=== PATIENT | male | born 1985 | race Caucasian/White ===

== ENCOUNTER 2025-05-13 18:05 | Emergency (ER) | payer BC ==
--- OUTSIDE RECORDS SUMMARY | 2025-05-13 18:09 | XMS REPORT | Continuity of Care Document ---
Author Name Unknown Address [address] [facility] [address] [place] [address] Organization [facility] [place] Address [address] [facility] 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 Name Role Phone CHERISE SILVER Primary Care Physician Unava ilable BERTA RAMIREZ Attending Clinician Unavailable BERTA RAMIREZ Attending Clinician Unavailable PEBBLES MONTERO Attending Clinician Unavailable ROBERTO MCCABE Attending Clinician Unavailable Doctor Unassigned, [place] Attending Clinician U Pebbles Castro MD Attending Clinician [phone] Berta Ramirez MD Attending Clinician [phone], [facility] Attending Clinician Unavailable CLAUDIA KIRAN Attending Clinician Unava ilable Berta Ramirez MD Admitting Clinician [phone] BERTA RAMIREZ Admitting Clinician Unavailable Payers Payer Name Policy Type Policy Number Effective Date Expirati on Date Source [facility] [id number] 2021 00:00:00 Problems Condition Name Condition Details Condition Category Status Onset Date Resolution Date Last Treatment Date Treating Clinician Comments Source Primary hypertensi on Primary hypertensi on Disease Active 5-16 00:00: 00 [facility] Longstandi ng persistent atrial fibrillati on Longstandi ng persistent atrial fibrillati on Disease Active 04-13 00:00: 00 [facility] Persistent atrial fibrillati on Persistent atrial fibrillati on Disease Active 03-22 00:00: 00 [facility] Morbid obesity Morbid obesity Disease Active 03-22 00:00: 00 [facility] TANIA (obstructi ve sleep apnea) TANIA (obstructi ve sleep apnea) Disease Active 03-22 00:00: 00 [facility] SWOLLEN LEG SWOLLEN LEG Active 03/20/2020 [facility] Diagnosis Active 03-20 12:40: 00 2020-03-20 13:52:00 [facility] 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 failure Active Problem 12/10/2020 [facility] Problem Active 2020-12-10 02:47:12 [facility] Mixed hyperlipid emia Mixed hyperlipid emia Active Problem 12/10/2020 [facility] Problem Active 2020-12-10 02:47:12 [facility] Aortic ectasia, unspecifie d site Aortic ectasia, unspecifie d site Active Problem 12/10/2020 [facility] Problem Active 2020-12-10 02:47:12 [facility] History of Past Illness Condition Name Condition Details Condition Category Status Onset Date Resolution Date Last Treatment Date Treating Clinician Comments Source Cellulitis , unspecifie d Cellulitis , unspecifie d 03/20/2020 03/22/2020 [facility] Problem 03-20 17:00: 00 2020-03-22 22:01:31 2020-03-22 22:01:31 [facility] Allergies, Adverse Reactions, Alerts Allergy Name Allergy Type Status Severity Reaction(s) Onset Date Inactive Date Treating Clinician Comments Source NO KNOWN ALLERGIE S Drug Class Active [facility] Social History Social Habit Start Date Stop Date Quantity Comments Source Sexual orientation U [facility] History of tobacco use Chews Tobacco [facility] Tobacco use and exposure 2024-04-13 00:00:00 2024-04-13 00:00:00 Former smokeless tobacco user [facility] History of Social function 2024-03-22 00:00:00 2024-03-22 00:00:00 [facility] Social History 2018-12-29 15:59:25 2018-12-29 15:59:25 [facility] Sex assigned at 1985 00:00:00 1985 00:00:00 [facility] Smoking Status Start Date Stop Date Source Tobacco smoking consumption unknown [facility] Never smoked tobacco [facility] Medications Ordered Medication Name Filled Medication Name Start Date Stop Date Current Medication? Ordering Clinician Indication Dosage Frequency Signature (SIG) Comments Components Source metoprolol succinate XL 100 mg 24 hr tablet 12-23 00:00: 00 12-24 04:59 :00 No [id number] 100mg Take 1 tablet by mouth in the morning. [facility] apixaban (ELIQUIS) tablet 5 mg apixaban (ELIQUIS) tablet 5 mg 12-20 19:30: 00 12-20 19:49 :00 No [id number] 5mg 5 mg, Oral, Once, 1 dose, On Thu12/20/24 at 1430, Routine, Indication s: Non-Valvul ar Atrial Fibrillati on [facility] NaCl 0.9% (NS) IV infusion 1,000 mL 12-20 15:15: 00 12-21 00:57 :24 No 1000mL at 75 mL/hr, IV Infusion, CONTINUOUS , Starting on Thu12/20/24 at 1015, Until Thu12/20/24 at 1957, Routine, PACU [facility] amiodarone 200 mg tablet 12-20 00:00: 00 Yes [id number] 200mg Take 1 tablet by mouth in the morning. [facility] apixaban 5 mg tablet 12-20 00:00: 00 12-20 00:00 :00 No [id number] 5mg Take 1 tablet by mouth in the morning and 1 tablet in the evening. Indication s: atrial fibrillati on [facility] perflutren protein-A microsphr (OPTISON) injection 3 mL 829 21:15: 00 04-07 21:03 :00 No [id number] 3mL 3 mL, IV Push, ONCE, 1 dose, On Alessandra 04/07/24 at 1615, Routine [facility] metoprolol succinate XL 50 mg 24 hr tablet 03-22 16:06: 40 12-23 00:00 :00 No 100mg Take 2 tablets by mouth in the morning. [facility] aspirin 81 mg EC tablet 03-22 00:00: 00 03-23 04:59 :00 No [id number] 81mg Take 1 tablet by mouth in the morning. [facility] Cephalexin 500 MG Oral Capsule [Keflex] 03-20 18:37: 00 Yes 500 mg = 1 cap, PO, QID, X 10 day, # 40 cap, 0 Refill(s), 175.26, cm, 03/20/20 12:47:00 CDT, Height, 121.1, kg, 03/20/20 12:47:00 CDT, Weight [facility] lisinopril 10 mg oral tablet 12-29 14:18: 00 Yes 10 mg = 1 tab, PO, Daily, # 90 tab, 1 Refill(s), Pharmacy: [id number] [facility] Desoximetas one 2.5 MG/ML Topical Cream [Topicort] 12-29 14:18: 00 Yes 1 appl, TOP, BID, X 14 day, # 60 gm, 0 Refill(s), Pharmacy: [facility] #[id number] [facility] Vital Signs Vital Name Observation Time Observation Value Comments S ourcindy Systolic blood pressure 2025-01-04 14:41:00 140 mm[Hg] [facility] Diastolic blood pressure 2025-01-04 14:41:00 100 mm[Hg] [facility] Heart rate 2025-01-04 14:41:00 72 /min [facility] Oxygen saturation in Arterial blood by Pulse oximetry 2025-01-04 14:41:00 98 /min [facility] Respiratory rate 2025-01-04 14:40:00 20 /min [facility] Body height 2025-01-04 14:40:00 172.7 cm [facility] Body weight 2025-01-04 14:40:00 132.45 kg [facility] BMI 2025-01-04 14:40:00 44.40 kg/m2 [facility] Systolic blood pressure 2024-12-23 13:13:00 146 mm[Hg] [facility] Diastolic blood pressure 2024-12-23 13:13:00 98 mm[Hg] [facility] Heart rate 2024-12-23 13:13:00 86 /min [facility] Respiratory rate 2024-12-23 13:10:00 17 /min [facility] Body height 2024-12-23 13:10:00 172.7 cm [facility] Body weight 2024-12-23 13:10:00 132.586 kg [facility] BMI 2024-12-23 13:10:00 44.44 kg/m2 [facility] Oxygen saturation in Arterial blood by Pulse oximetry 2024-12-23 13:10:00 97 /min [facility] Body height 2024-12-09 21:39:00 172.7 cm [facility] Body weight 2024-12-09 21:39:00 131.1 kg [facility] BMI 2024-12-09 21:39:00 43.95 kg/m2 [facility] Systolic blood pressure 2024-12-20 19:45:00 131 mm[Hg] BP WHILE STANDING [facility] Diastolic blood pressure 2024-12-20 19:45:00 94 mm[Hg] BP WHILE STANDING [facility] Heart rate 2024-12-20 19:41:00 103 /min [facility] Respiratory rate 2024-12-20 19:41:00 12 /min [facility] Oxygen saturation in Arterial blood by Pulse oximetry 2024-12-20 19:41:00 91 /min [facility] Body temperature 2024-12-20 11:20:00 36.22 Cecily [facility] Body height 2024-12-20 11:20:00 172.7 cm [facility] Body weight 2024-12-20 11:20:00 129.275 kg [facility] BMI 2024-12-20 11:20:00 43.33 kg/m2 [facility] Systolic blood pressure 2024-12-20 15:30:00 116 mm[Hg] [facility] Diastolic blood pressure 2024-12-20 15:30:00 82 mm[Hg] [facility] Heart rate 2024-12-20 15:30:00 92 /min [facility] Respiratory rate 2024-12-20 15:30:00 9 /min [facility] Oxygen saturation in Arterial blood by Pulse oximetry 2024-12-20 15:30:00 93 /min [facility] Body temperature 2024-12-20 11:20:00 36.22 Cecily [facility] Body height 2024-12-20 11:20:00 172.7 cm [facility] Body weight 2024-12-20 11:20:00 129.275 kg [facility] BMI 2024-12-20 11:20:00 43.33 kg/m2 [facility] Systolic blood pressure 2024-06-24 21:11:00 132 mm[Hg] [facility] Diastolic blood pressure 2024-06-24 21:11:00 87 mm[Hg] [facility] Heart rate 2024-06-24 21:11:00 80 /min [facility] Body temperature 2024-06-24 21:11:00 36.17 Cecily [facility] Respiratory rate 2024-06-24 21:11:00 16 /min [facility] Body height 2024-06-24 21:11:00 172.7 cm [facility] Body weight 2024-06-24 21:11:00 131.135 kg [facility] BMI 2024-06-24 21:11:00 43.96 kg/m2 [facility] Oxygen saturation in Arterial blood by Pulse oximetry 2024-06-24 21:11:00 95 /min [facility] Systolic blood pressure 2024-04-13 18:57:00 125 mm[Hg] [facility] Diastolic blood pressure 2024-04-13 18:57:00 85 mm[Hg] [facility] Heart rate 2024-04-13 18:54:00 68 /min [facility] Respiratory rate 2024-04-13 18:54:00 18 /min [facility] Body height 2024-04-13 18:54:00 175.3 cm [facility] Body weight 2024-04-13 18:54:00 136.351 kg [facility] BMI 2024-04-13 18:54:00 44.39 kg/m2 [facility] Oxygen saturation in Arterial blood by Pulse oximetry 2024-04-13 18:54:00 98 /min [facility] Systolic blood pressure 2024-03-22 20:23:00 131 mm[Hg] [facility] Diastolic blood pressure 2024-03-22 20:23:00 88 mm[Hg] [facility] Heart rate 2024-03-22 20:23:00 73 /min [facility] Respiratory rate 2024-03-22 20:23:00 16 /min [facility] Oxygen saturation in Arterial blood by Pulse oximetry 2024-03-22 20:23:00 98 /min [facility] Body height 2024-03-22 20:14:00 172.7 cm [facility] Body weight 2024-03-22 20:14:00 136.215 kg [facility] BMI 2024-03-22 20:14:00 45.66 kg/m2 [facility] Temperature Oral (F) 2020-03-20 18:55:00 98.6 F [facility] Heart Rate 2020-03-20 18:55:00 [facility] Respitory Rate 2020-03-20 18:55:00 [facility] Systolic (mm Hg) 2020-03-20 18:55:00 [facility] Diastolic (mm Hg) 2020-03-20 18:55:00 [facility] Height 2020-03-20 17:47:00 175.26 cm [facility] BMI Calculated 2020-03-20 17:47:00 [facility] Weight 2020-03-20 17:47:00 [facility] Systolic (mm Hg) 2020-03-20 17:47:00 [facility] Diastolic (mm Hg) 2020-03-20 17:47:00 [facility] Heart Rate 2020-03-20 17:47:00 [facility] Respitory Rate 2020-03-20 17:47:00 [facility] Temperature Oral (F) 2020-03-20 17:47:00 98.6 F [facility] Height 2018-12-29 13:08:00 175.26 cm [facility] Weight 2018-12-29 13:08:00 [facility] BMI Calculated 2018-12-29 13:08:00 [facility] Temperature Oral (F) 2018-12-29 13:08:00 98.1 F [facility] Systolic (mm Hg) 2018-12-29 13:08:00 [facility] Diastolic (mm Hg) 2018-12-29 13:08:00 [facility] Heart Rate 2018-12-29 13:08:00 [facility] Procedures Procedure Date / Time Performed Performing Clinician Source TRANSTHORACIC ECHO (TTE) LIMITED 2024-12-20 17:27:[address] [facility] TRANSTHORACIC ECHO (TTE) LIMITED 2024-12-20 17:27:[address] [facility] CATH PROCEDURE LOG 2024-12-20 14:39:43 Doctor Un assigned, [place] [facility] CATH PROCEDURE LOG 2024-12-20 14:39:43 Doctor Un assigned, [place] [facility] POCT ACT LOW RANGE 2024-12-20 14:17:00 Dano Ku [facility] CARDIAC CATHETERIZATION 2024-12-20 14:07:15 Dano Ku [facility] ELECTROPHYSIOLOGY PROCEDURE 2024-12-20 14:07:15 Dano Romeo i [facility] ELECTROPHYSIOLOGY PROCEDURE 2024-12-20 14:07:15 Dano Romeo i, [facility] ELECTROPHYSIOLOGY PROCEDURE 2024-12-20 14:07:15 Dano Romeo i [facility] ELECTROPHYSIOLOGY PROCEDURE 2024-12-20 14:07:15 Dano Romeo i, [facility] CARDIAC CATHETERIZATION 2024-12-20 14:07:15 Dano Ku [facility] ELECTROPHYSIOLOGY PROCEDURE 2024-12-20 14:07:15 Dano Romeo i [facility] ELECTROPHYSIOLOGY PROCEDURE 2024-12-20 14:07:15 Dano Romeo i [facility] ELECTROPHYSIOLOGY PROCEDURE 2024-12-20 14:07:15 Dano Romeo i [facility] ELECTROPHYSIOLOGY PROCEDURE 2024-12-20 14:07:15 Dano Romeo i [facility] POCT ACT LOW RANGE 2024-12-20 14:04:00 Dano Ku [facility] POCT ACT LOW RANGE 2024-12-20 13:40:00 Dano Ku [facility] POCT ACT LOW RANGE 2024-12-20 13:20:00 Dano Ku Berta [facility] HB ABO GROUPING 2024-12-20 12:16:00 Dax Dunbar [facility] HB ABO GROUPING 2024-12-20 12:16:00 Dax Dunbar [facility] TRANSTHORACIC ECHO (TTE) COMPLETE W/ CONTRAST 2024-04-07 21:00:18 Pebbles Montero [facility] Collection of venous blood by venipuncture 2018-12-29 14:49:00 [facility] Encounters Start Date/Time End Date/Time Encounter Type Admission Type Attending [facility] Care Department Encounter ID Source 2025-07-12 08:30:00 2025-07-12 08:30:00 Outpatient R BERTA RAMIREZ [facility] [id number] [facility] 2025-06-23 08:00:00 2025-06-23 08:00:00 Outpatient R PEBBLES MONTERO [facility] [id number] [facility] 2024-12-01 00:00:00 2025-01-07 18:26:41 Patient Secure Msg Doctor Unassigned, [place] Doctor Unassigned, [place] [facility] 1..840.114 350.1.13.10 4.2.7.2.686 [id number] [facility] 2025-01-04 14:30:00 2025-01-04 09:58:10 Office Visit R BERTA RAMIREZ [facility] [id number] 350.1.13.10 4.2.7.2.686 [id number] [facility] 2024-12-23 08:00:00 2024-12-23 08:42:00 Office Visit Pebbles Saucedo [facility] 1.2840.114 350.1.13.10 4.2.7.2.686 [id number] [facility] 2024-12-23 08:00:00 2024-12-23 08:00:00 Outpatient PEBBLES SAUCEDO [facility] [id number] [facility] 2024-12-20 07:16:12 2024-12-20 23:59:00 Hospital Encounter Dano Ku Berta [facility] 1.2840.114 350.1.13.10 4.2.7.2.686 [id number] [facility] 2024-12-20 06:19:00 2024-12-20 15:04:00 Hospital Encounter Jyotsna DANO KUSONABERTAHALE BERTA [facility] [id number] [facility] 2024-12-20 06:19:00 2024-12-20 15:04:00 Outpatient R DANO TATIANASONABERTABERTA HALE [facility] [id number] [facility] 2024-12-20 07:30:00 2024-12-20 10:30:00 Surgery Berta Ramirez [facility] 1.2840.114 350.1.13.10 4.2.7.2.686 [id number] [facility] 2024-12-19 16:00:00 2024-12-19 16:15:00 Director Life Sciences Visit 2, [facility] Berta Ramirez 2, Adc Lab [facility] 1.2840.114 350.1.13.10 4.2.7.2.686 [id number] [facility] 2024-12-19 16:00:00 2024-12-19 16:00:00 Outpatient R BERTA RAMIREZ [facility] [id number] [facility] 2024-12-19 00:00:00 2024-12-19 14:26:34 Telephone Berta Ramirez [facility] 1.2840.114 350.1.13.10 4.2.7.2.686 [id number] [facility] 2024-07-13 08:00:00 2024-07-13 08:00:00 Outpatient R BERTA RAMIREZ [facility] [id number] [facility] 2024-06-24 15:30:00 2024-06-24 15:35:18 Outpatient R KYLAH [facility] [id number] [facility] 2024-06-24 15:30:00 2024-06-24 15:35:18 Office Visit Pebbles Montero [facility] 1.2840.114 350.1.13.10 4.2.7.2.686 [id number] [facility] 2024-04-15 00:00:00 2024-04-15 12:47:38 Telephone Berta Ramirez [facility] 1.2840.114 350.1.13.10 4.2.7.2.686 [id number] [facility] 2024-04-13 15:30:00 2024-04-13 15:30:00 Outpatient R BERTA RAMIREZ [facility] [id number] [facility] 2024-04-13 14:00:00 2024-04-13 14:31:23 Outpatient R BERTA RAMIREZ [facility] [id number] [facility] 2024-04-13 14:00:00 2024-04-13 14:31:23 Office Visit Berta Ramirez [facility] [id number] 350.1.13.10 4.2.7.2.686 [id number] [facility] 2024-04-07 14:44:16 2024-04-07 23:59:00 [facility] [id number] [facility] 2024-04-07 14:44:16 2024-04-07 23:59:00 Hospital Encounter Kylah [facility] 1.2.840.114 350.1.13.10 4.2.7.2.686 [id number] [facility] 2024-03-25 00:00:00 2024-03-25 09:02:30 Telephone Kylah [facility] 1.2.840.114 350.1.13.10 4.2.7.2.686 [id number] [facility] 2024-03-22 15:30:00 2024-03-22 16:21:37 Outpatient R PEBBLES MONTERO [facility] [id number] [facility] 2024-03-22 15:30:00 2024-03-22 16:21:37 Office Visit Kylah [facility] 1.2.840.114 350.1.13.10 4.2.7.2.686 [id number] [facility] 2020-03-20 12:40:00 2020-03-20 14:04:00 Emergency E CLAUDIA KIRAN BL BL 7502 BL Results Test Description Test Time Test Comments Results Result Comments Source Cardiovascular Catheterization 15:10:02 Table formatting from the original result was not included.Images from the original result were not included. Procedure: Atrial fibrillation ablation ?[place] Supervisor : Berta Ramirez MD EBL: 30 ml (unless otherwise stated)Specimens: noneAnesthesia: General anesthesiaComplicati on: None Pre-Procedure Diagnosis:Symptomati c long standing persistent atrial fibrillation Summarized Procedure:1-PVI for afib ablation Details:The risks and benefits of GA, electrophysiology study, trans-septal puncture, endocardial PFA+/- radiofrequency ablation, possible direct current cardioversion, atrial fibrillation ablation, and atrial flutter ablation were explained to the patient in detail. Risks including, but not limited to bleeding, infection, heart block, atrio-esophageal fistula, pulmonary vein stenosis, stroke, cardiac tamponade, pneumothorax, , and need for cardiac surgery were explained. The patient expressed verbal understanding and agreed to proceed with the procedure as outlined. Informed written consent was signed and placed in the chart prior to proceeding. After informed consent was obtained, the patient was brought to the Cardiac Electrophysiology Laboratory in a fasting state and was prepped and draped in the usual sterile fashion. Both groin areas were infiltrated with 0.5% lidocaine. Presenting rhythm was afib RVR. Prior to the procedure ICE ?was performed and demonstrated normal LVEF, normal size LA ?and no left atrial thrombus. (ICE exam was performed from ?RA, RVOT and LA. Using modified Seldinger technique, sheaths and catheters were inserted and advanced as follows. An 18,10,7 on right femoral ?vein. An Inquiry CS catheter was inserted via the 7 Fr sheath and placed with its tip in the distal coronary sinus. ?Next, an intracardiac echocardiogram probe was inserted into the 9 Fr sheath, and Faraconnect sheath inserted via 18 Fr sheath in the right femoral vein. Intracardiac echocardiography (ICE): An 8Fr ICE catheter was inserted through the right femoral vein sheath and under fluoroscopic direction was placed into the right atrium. ICE was used to assist with transseptal puncture . Furthermore it was left in place during the entire procedure for monitoring of possible development of pericardial effusion or tamponade which there was none. Pre TS puncture I did detailed ICE exam, initially I examine the area of the right atrium, tricuspid valve and right ventricle inflow. With gradual posterior rotation I examined the following Cardiac structures ; interatrial septum, left atrium, mitral valve annulus, mitral valve leaflet, MAXX, left superior PV, left inferior PV, posterior wall of the left atrium, right pulmonary veins. I re-centered the ICE catheter facing the RV inflow and with anterior flexion of the ICE catheter and septal rotation I gently advanced the ICE cathter into the right ventricle. With gradual septal-Posterior rotation of the ICE catheter I examined the left ventricular cavity, posterior medical papillary muscle, anterior lateral papillary muscle. With more clockwise rotation of the ICE catheter I was able to examine AV leaflet in cross sectional view along with RVOT, pulmonary valve and PA. From that view, I reexamined the MAXX lobes and left superior PV. At end of exam the ICE cathter was kept inside the RV for monitoring of possible development of pericardial effusion. ? Transseptal puncture: YoQueVosnect 13Fr sheath was advanced via 18 Fr sheath in right femoral vein. After placing and confirming the ?position of [place] sheath tip on the interatrial septum fossa ovalis area with ICE and fluorsoscopy guidance, the TS puncture was performed, guidewire was advanced into LA then PV with ICE guidance. ?Sheath and dilator were inserted into mid LA cavity under fluoroscopic direction. ?34640 units of ?heparin was administered intravenously at time of obtaining TS puncture prior to advancing the sheath and dilator. ACT was measured every 10 minutes and additional doses of heparin were administered in order to maintain ACT between 350-400 seconds. The [place] dilator and guide wire were removed and sheath was flushed and maintained on continuous drip with heparinized saline. Left atrial mapping and ablation: A-PVI:A 3-D electroanatomic map of the left atrium was performed using the Rhythmia mapping system. Mapping was performed with PFA mapping catheter. Pulmonary veins were identified using fluoroscopy, ICE, and the mapping system. The patient had a total of 4 veins. A right superior, right inferior, left superior, and left inferior pulmonary vein. Next we delivered Farawave PFA therapy to isolate pulmonary veins with 8 applications per vein with 2 Kv (4-6 per position). PV isolation confirmed with re mapping the PVs using PFA ?catheter. Plan Limited TTE for effusion.Bedrest 5 hr. Start Eliquis, 5 bid, first dose in 5 hrSuture removal in 5 hr.Follow up with EP clinic in 2 weeks Start amiodarone 200 mg daily for 90 days. Patient voiced understanding her/his treatment plan. All her/his questions were answered during this visit. Advised to call the office with any further questions. Voice recognition software has been used to create portions of this document. An attempt to proofread has been made to minimize errors. Please do not hesitate to call with any questions. ? ? Berta Ramirez, MDCardiac Electrophysiology [facility] ? Procedure DetailsProcedure: Atrial fibrillation ablation [facility] Supervisor: Berta Ramirez MD EBL: 30 ml (unless otherwise stated)Specimens: noneAnesthesia: General anesthesiaComplicati on: None Pre-Procedure Diagnosis:Symptomati c long standing persistent atrial fibrillation Summarized Procedure:1-PVI for afib ablation Details:The risks and benefits of GA, electrophysiology study, trans-septal puncture, endocardial PFA+/- radiofrequency ablation, possible direct current cardioversion, atrial fibrillation ablation, and atrial flutter ablation were explained to the patient in detail. Risks including, but not limited to bleeding, infection, heart block, atrio-esophageal fistula, pulmonary vein stenosis, stroke, cardiac tamponade, pneumothorax, , and need for cardiac surgery were explained. The patient expressed verbal understanding and agreed to proceed with the procedure as outlined. Informed written consent was signed and placed in the chart prior to proceeding. After informed consent was obtained, the patient was brought to the Cardiac Electrophysiology Laboratory in a fasting state and was prepped and draped in the usual sterile fashion. Both groin areas were infiltrated with 0.5% lidocaine. Presenting rhythm was afib RVR. Prior to the procedure ICE was performed and demonstrated normal LVEF, normal size LA and no left atrial thrombus. (ICE exam was performed from RA, RVOT and LA. Using modified Seldinger technique, sheaths and catheters were inserted and advanced as follows. An 18,10,7 on right femoral vein. An Inquiry CS catheter was inserted via the 7 Fr sheath and placed with its tip in the distal coronary sinus. Next, an intracardiac echocardiogram probe was inserted into the 9 Fr sheath, and Faraconnect sheath inserted via 18 Fr sheath in the right femoral vein. Intracardiac echocardiography (ICE): An 8Fr ICE catheter was inserted through the right femoral vein sheath and under fluoroscopic direction was placed into the right atrium. ICE was used to assist with transseptal puncture . Furthermore it was left in place during the entire procedure for monitoring of possible development of pericardial effusion or tamponade which there was none. Pre TS puncture I did detailed ICE exam, initially I examine the area of the right atrium, tricuspid valve and right ventricle inflow. With gradual posterior rotation I examined the following Cardiac structures ; interatrial septum, left atrium, mitral valve annulus, mitral valve leaflet, MAXX, left superior PV, left inferior PV, posterior wall of the left atrium, right pulmonary veins. I re-centered the ICE catheter facing the RV inflow and with anterior flexion of the ICE catheter and septal rotation I gently advanced the ICE cathter into the right ventricle. With gradual septal-Posterior rotation of the ICE catheter I examined the left ventricular cavity, posterior medical papillary muscle, anterior lateral papillary muscle. With more clockwise rotation of the ICE catheter I was able to examine AV leaflet in cross sectional view along with RVOT, pulmonary valve and PA. From that view, I reexamined the MAXX lobes and left superior PV. At end of exam the ICE cathter was kept inside the RV for monitoring of possible development of pericardial effusion. Transseptal puncture: FarMytonomynect 13Fr sheath was advanced via 18 Fr sheath in right femoral vein. After placing and confirming the position of [place] sheath tip on the interatrial septum fossa ovalis area with ICE and fluorsoscopy guidance, the TS puncture was performed, guidewire was advanced into LA then PV with ICE guidance. Sheath and dilator were inserted into mid LA cavity under fluoroscopic direction. 73727 units of heparin was administered intravenously at time of obtaining TS puncture prior to advancing the sheath and dilator. ACT was measured every 10 minutes and additional doses of heparin were administered in order to maintain ACT between 350-400 seconds. The [place] dilator and guide wire were removed and sheath was flushed and maintained on continuous drip with heparinized saline. Left atrial mapping and ablation: A-PVI:A 3-D electroanatomic map of the left atrium was performed using the Rhythmia mapping system. Mapping was performed with PFA mapping catheter. Pulmonary veins were identified using fluoroscopy, ICE, and the mapping system. The patient had a total of 4 veins. A right superior, right inferior, left superior, and left inferior pulmonary vein. Next we delivered Farawave PFA therapy to isolate pulmonary veins with 8 applications per vein with 2 Kv (4-6 per position). PV isolation confirmed with re mapping the PVs using PFA catheter. Plan Limited TTE for effusion.Bedrest 5 hr. Start Eliquis, 5 bid, first dose in 5 hrSuture removal in 5 hr.Follow up with EP clinic in 2 weeks Start amiodarone 200 mg daily for 90 days. Patient voiced understanding her/his treatment plan. All her/his questions were answered during this visit. Advised to call the office with any further questions. Voice recognition software has been used to create portions of this document. An attempt to proofread has been made to minimize errors. Please do not hesitate to call with any questions. Berta Ramirez, MDCardiac Electrophysiology [facility] Electrophysiology procedure 15:10:01 Table formatting from the original result was not included.Images from the original result were not included. Procedure: Atrial fibrillation ablation ?[facility] Supervisor : Berta Ramirez MD EBL: 30 ml (unless otherwise stated)Specimens: noneAnesthesia: General anesthesiaComplicati on: None Pre-Procedure Diagnosis:Symptomati c long standing persistent atrial fibrillation Summarized Procedure:1-PVI for afib ablation Details:The risks and benefits of GA, electrophysiology study, trans-septal puncture, endocardial PFA+/- radiofrequency ablation, possible direct current cardioversion, atrial fibrillation ablation, and atrial flutter ablation were explained to the patient in detail. Risks including, but not limited to bleeding, infection, heart block, atrio-esophageal fistula, pulmonary vein stenosis, stroke, cardiac tamponade, pneumothorax, , and need for cardiac surgery were explained. The patient expressed verbal understanding and agreed to proceed with the procedure as outlined. Informed written consent was signed and placed in the chart prior to proceeding. After informed consent was obtained, the patient was brought to the Cardiac Electrophysiology Laboratory in a fasting state and was prepped and draped in the usual sterile fashion. Both groin areas were infiltrated with 0.5% lidocaine. Presenting rhythm was afib RVR. Prior to the procedure ICE ?was performed and demonstrated normal LVEF, normal size LA ?and no left atrial thrombus. (ICE exam was performed from ?RA, RVOT and LA. Using modified Seldinger technique, sheaths and catheters were inserted and advanced as follows. An 18,10,7 on right femoral ?vein. An Inquiry CS catheter was inserted via the 7 Fr sheath and placed with its tip in the distal coronary sinus. ?Next, an intracardiac echocardiogram probe was inserted into the 9 Fr sheath, and Faraconnect sheath inserted via 18 Fr sheath in the right femoral vein. Intracardiac echocardiography (ICE): An 8Fr ICE catheter was inserted through the right femoral vein sheath and under fluoroscopic direction was placed into the right atrium. ICE was used to assist with transseptal puncture . Furthermore it was left in place during the entire procedure for monitoring of possible development of pericardial effusion or tamponade which there was none. Pre TS puncture I did detailed ICE exam, initially I examine the area of the right atrium, tricuspid valve and right ventricle inflow. With gradual posterior rotation I examined the following Cardiac structures ; interatrial septum, left atrium, mitral valve annulus, mitral valve leaflet, MAXX, left superior PV, left inferior PV, posterior wall of the left atrium, right pulmonary veins. I re-centered the ICE catheter facing the RV inflow and with anterior flexion of the ICE catheter and septal rotation I gently advanced the ICE cathter into the right ventricle. With gradual septal-Posterior rotation of the ICE catheter I examined the left ventricular cavity, posterior medical papillary muscle, anterior lateral papillary muscle. With more clockwise rotation of the ICE catheter I was able to examine AV leaflet in cross sectional view along with RVOT, pulmonary valve and PA. From that view, I reexamined the MAXX lobes and left superior PV. At end of exam the ICE cathter was kept inside the RV for monitoring of possible development of pericardial effusion. ? Transseptal puncture: Faraconnect 13Fr sheath was advanced via 18 Fr sheath in right femoral vein. After placing and confirming the ?position of [place] sheath tip on the interatrial septum fossa ovalis area with ICE and fluorsoscopy guidance, the TS puncture was performed, guidewire was advanced into LA then PV with ICE guidance. ?Sheath and dilator were inserted into mid LA cavity under fluoroscopic direction. ?53988 units of ?heparin was administered intravenously at time of obtaining TS puncture prior to advancing the sheath and dilator. ACT was measured every 10 minutes and additional doses of heparin were administered in order to maintain ACT between 350-400 seconds. The [place] dilator and guide wire were removed and sheath was flushed and maintained on continuous drip with heparinized saline. Left atrial mapping and ablation: A-PVI:A 3-D electroanatomic map of the left atrium was performed using the Qgiv mapping system. Mapping was performed with PFA mapping catheter. Pulmonary veins were identified using fluoroscopy, ICE, and the mapping system. The patient had a total of 4 veins. A right superior, right inferior, left superior, and left inferior pulmonary vein. Next we delivered Farawave PFA therapy to isolate pulmonary veins with 8 applications per vein with 2 Kv (4-6 per position). PV isolation confirmed with re mapping the PVs using PFA ?catheter. Plan Limited TTE for effusion.Bedrest 5 hr. Start Eliquis, 5 bid, first dose in 5 hrSuture removal in 5 hr.Follow up with EP clinic in 2 weeks Start amiodarone 200 mg daily for 90 days. Patient voiced understanding her/his treatment plan. All her/his questions were answered during this visit. Advised to call the office with any further questions. Voice recognition software has been used to create portions of this document. An attempt to proofread has been made to minimize errors. Please do not hesitate to call with any questions. ? ? ISAAK Levyardiac Electrophysiology [facility] ? Procedure DetailsProcedure: Atrial fibrillation ablation [facility] Supervisor: Berta Ramirez MD EBL: 30 ml (unless otherwise stated)Specimens: noneAnesthesia: General anesthesiaComplicati on: None Pre-Procedure Diagnosis:Symptomati c long standing persistent atrial fibrillation Summarized Procedure:1-PVI for afib ablation Details:The risks and benefits of GA, electrophysiology study, trans-septal puncture, endocardial PFA+/- radiofrequency ablation, possible direct current cardioversion, atrial fibrillation ablation, and atrial flutter ablation were explained to the patient in detail. Risks including, but not limited to bleeding, infection, heart block, atrio-esophageal fistula, pulmonary vein stenosis, stroke, cardiac tamponade, pneumothorax, , and need for cardiac surgery were explained. The patient expressed verbal understanding and agreed to proceed with the procedure as outlined. Informed written consent was signed and placed in the chart prior to proceeding. After informed consent was obtained, the patient was brought to the Cardiac Electrophysiology Laboratory in a fasting state and was prepped and draped in the usual sterile fashion. Both groin areas were infiltrated with 0.5% lidocaine. Presenting rhythm was afib RVR. Prior to the procedure ICE was performed and demonstrated normal LVEF, normal size LA and no left atrial thrombus. (ICE exam was performed from RA, RVOT and LA. Using modified Seldinger technique, sheaths and catheters were inserted and advanced as follows. An 18,10,7 on right femoral vein. An Inquiry CS catheter was inserted via the 7 Fr sheath and placed with its tip in the distal coronary sinus. Next, an intracardiac echocardiogram probe was inserted into the 9 Fr sheath, and Faraconnect sheath inserted via 18 Fr sheath in the right femoral vein. Intracardiac echocardiography (ICE): An 8Fr ICE catheter was inserted through the right femoral vein sheath and under fluoroscopic direction was placed into the right atrium. ICE was used to assist with transseptal puncture . Furthermore it was left in place during the entire procedure for monitoring of possible development of pericardial effusion or tamponade which there was none. Pre TS puncture I did detailed ICE exam, initially I examine the area of the right atrium, tricuspid valve and right ventricle inflow. With gradual posterior rotation I examined the following Cardiac structures ; interatrial septum, left atrium, mitral valve annulus, mitral valve leaflet, MAXX, left superior PV, left inferior PV, posterior wall of the left atrium, right pulmonary veins. I re-centered the ICE catheter facing the RV inflow and with anterior flexion of the ICE catheter and septal rotation I gently advanced the ICE cathter into the right ventricle. With gradual septal-Posterior rotation of the ICE catheter I examined the left ventricular cavity, posterior medical papillary muscle, anterior lateral papillary muscle. With more clockwise rotation of the ICE catheter I was able to examine AV leaflet in cross sectional view along with RVOT, pulmonary valve and PA. From that view, I reexamined the MAXX lobes and left superior PV. At end of exam the ICE cathter was kept inside the RV for monitoring of possible development of pericardial effusion. Transseptal puncture: Faraconnect 13Fr sheath was advanced via 18 Fr sheath in right femoral vein. After placing and confirming the position of [place] sheath tip on the interatrial septum fossa ovalis area with ICE and fluorsoscopy guidance, the TS puncture was performed, guidewire was advanced into LA then PV with ICE guidance. Sheath and dilator were inserted into mid LA cavity under fluoroscopic direction. 18354 units of heparin was administered intravenously at time of obtaining TS puncture prior to advancing the sheath and dilator. ACT was measured every 10 minutes and additional doses of heparin were administered in order to maintain ACT between 350-400 seconds. The [place] dilator and guide wire were removed and sheath was flushed and maintained on continuous drip with heparinized saline. Left atrial mapping and ablation: A-PVI:A 3-D electroanatomic map of the left atrium was performed using the Rhythmia mapping system. Mapping was performed with PFA mapping catheter. Pulmonary veins were identified using fluoroscopy, ICE, and the mapping system. The patient had a total of 4 veins. A right superior, right inferior, left superior, and left inferior pulmonary vein. Next we delivered Farawave PFA therapy to isolate pulmonary veins with 8 applications per vein with 2 Kv (4-6 per position). PV isolation confirmed with re mapping the PVs using PFA catheter. Plan Limited TTE for effusion.Bedrest 5 hr. Start Eliquis, 5 bid, first dose in 5 hrSuture removal in 5 hr.Follow up with EP clinic in 2 weeks Start amiodarone 200 mg daily for 90 days. Patient voiced understanding her/his treatment plan. All her/his questions were answered during this visit. Advised to call the office with any further questions. Voice recognition software has been used to create portions of this document. An attempt to proofread has been made to minimize errors. Please do not hesitate to call with any questions. Berta Ramirez, MDCardiac Electrophysiology [facility] ACT Low [id number] 11:59:16* Test Item Value Reference Range Interpretation Comme nts ACTLR (test code = 4465757059) 355 89-169 H Lab Interpretation (test cod e = 96005-8) [facility] ACT Low [id number] 11:59:16* Test Item Value Reference Range Interpretation Comme nts ACTLR (test code = 4453189178) 318 89-169 H Lab Interpretation (test cod e = 20452-9) [facility]normal [facility] ACT Low [id number] 11:59:16* Test Item Value Reference Range Interpretation Comme nts ACTLR (test code = 9129682185) 158 89-169 Lab Interpretation (test cod e = 98915-5) Normal [facility] [id number] 18:37:36* Test Item Value Reference Range Interpretation Comme nts Height (test code = 4367315961) 68 in Weight (test code = 7787155032) 285 lbs Systolic BP (test code = 6114218544) 166 mmHg Diastolic BP (test code = 2921538862) 98 mmHg Heart Rate (test code = 6930281664) 97 bpm BSA (test code = 6455553165) 2.38 m2 Radiology Study observation (narrative) (test code = 36050-7) TRAMAINE (test code = TRAMAINE) ?Limited Echo to rule out pericardial effusion post ablation procedure. ?Left?Ventricle: Left ventricle size is normal. Grossly normal systolic function with a visually estimated EF of 50 - 65%. ?Right?Ventricle: Right ventricle is normal in size and function. ?Pericardium: No pericardial effusion. Left VentricleLeft ventricle size is normal. Grossly normal systolic function with a visually estimated EF of 50 - 65%.Right VentricleRight ventricle is normal in size and function.Left AtriumLeft atrium size is grossly normal.Right AtriumRight atrium size is grossly normal.Mitral ValveNot well visualized.Aortic ValveNot well visualized.Pulmonic ValveNot well visualized.Ascending AortaNot well visualized.PericardiumNo pericardial effusion.Study DetailsStudy quality was adequate. A limited echocardiogram was performed using 2D. Patient exhibited sinus rhythm. [facility] [id number] 18:37:36* Test Item Value Reference Range Interpretation Comme nts Height (test code = 1652160844) 68 in Weight (test code = 7662302947) 285 lbs Systolic BP (test code = 8324562689) 166 mmHg Diastolic BP (test code = 6817162755) 98 mmHg Heart Rate (test code = 7918609124) 97 bpm BSA (test code = 7384795888) 2.38 m2 Radiology Study observation (narrative) (test code = 92705-0) TRAMAINE (test code = TRAMAINE) ?Limited Echo to rule out pericardial effusion post ablation procedure. ?Left?Ventricle: Left ventricle size is normal. Grossly normal systolic function with a visually estimated EF of 50 - 65%. ?Right?Ventricle: Right ventricle is normal in size and function. ?Pericardium: No pericardial effusion. Left VentricleLeft ventricle size is normal. Grossly normal systolic function with a visually estimated EF of 50 - 65%.Right VentricleRight ventricle is normal in size and function.Left AtriumLeft atrium size is grossly normal.Right AtriumRight atrium size is grossly normal.Mitral ValveNot well visualized.Aortic ValveNot well visualized.Pulmonic ValveNot well visualized.Ascending AortaNot well visualized.PericardiumNo pericardial effusion.Study DetailsStudy quality was adequate. A limited echocardiogram was performed using 2D. Patient exhibited sinus rhythm. [facility] [id number] 14:39:43Ordered by an unspecified provider.[facility]2024-04-07 22:02:08* Test Item Value Reference Range Interpretation Comme nts Height (test code = 9272291214) 68 in Weight (test code = 4437921104) 300 lbs Systolic BP (test code = 8748590282) 127 mmHg Diastolic BP (test code = 8363778602) 93 mmHg Heart Rate (test code = 6213728267) 86 bpm EF(Teich) (test code = 9840687985) 60.30 % LVIDD (test code = 1985410150) 4.70 cm LVIDS (test code = 2770653469) 3.20 cm Left Ventricular End Systolic Volume by Teichholz Method (test code = 8603391) 40.7 mL Left Ventricular End Diastolic Volume by Teichholz Method (test code = 8025201) 102.4 mL IVS (test code = 0486772076) 1.10 cm LVPWD (test code = 4375037596) 1.20 cm LVOT diameter (test code = 1871170559) 2.12 cm LVOT area (test code = 7447542398) 3.50 cm2 FS (test code = 4482015579) 32 % LA size (test code = 2211272767) 5.3 cm RVOT Proximal Diameter (test code = 5710727555) 3.00 cm ACS (test code = 6826091433) 2.19 cm Ao root diam (test code = 6378846094) 3.40 cm Aortic root (test code = 2964413884) 3.4 cm Ao root annulus (test code = 8110853897) 3.4 cm PW (test code = 8259907311) 1.20 cm 0.6-1.1 EF - 2D (test code = 83853405) 60.30 % Interventricular Septum Diastolic Thickness by 2D (test code = 7317864) 1.10 cm BSA (test code = 6669413611) 2.43 m2 E wave decelartion time (test code = 9656213935) 0.20 s MV Peak E Alexis (test code = 9166418923) 100.6 cm/s MV Prop V (test code = 0970664045) 83.90 cm/s LVOT stroke volume (test code = 5983223588) 70.80 cm3 LVOT peak alexis (test code = 4878492610) 111.6 cm/s LVOT mn grad (test code = 7417588652) 2.5 mmHg AV LVOT peak gradient (test code = 8357331870) 5.0 mmHg LVOT peak VTI (test code = 5307464127) 20.0 cm LV V1 mean (test code = 1611752689) 72.70 cm/s Aortic valve mean velocity (test code = 3712846358) 79.0 cm/s Ao peak alexis (test code = 5890711859) 128.3 cm/s Ao VTI (test code = 2832842296) 23.9 cm AV area by cont VTI (test code = 3372022579) 3.0 cm2 AV area peak alexis (test code = 4209143946) 3.1 cm2 Ao max PG (test code = 7540461364) 6.60 mm[Hg] AV peak gradient (test code = 5761775443) 6.6 mmHg AV valve area (test code = 4327376341) 3.00 cm2 AV mean gradient (test code = 0802584718) 3.0 mmHg MR max PG (test code = 7731317767) 90.60 mm[Hg] MR max alexis (test code = 2463502669) 475.80 cm/s Mr max alexis (test code = 1523521438) 475.8 m/s TR Peak Alxeis (test code = 4373819773) 224.6 cm/s Triscuspid Valve Regurgitation Peak Gradient (test code = 1905220072) 20.2 mmHg Radiology Study observation (narrative) (test code = 29982-7) TRAMAINE (test code = TRAMAINE) ?Left?Ventricle: Left ventricle size is normal. Normal wall thickness. Normal wall motion. Normal systolic function with a visually estimated EF of 55 - 60%. Unable to assess diastolic function due to arrhythmia. Elevated left ventricular filling pressure. ?Tricuspid?Valve: Insufficient tricuspid regurgitation jet to estimate RVSP, but probably normal. ?RA pressure is 0-5 mmHg. Left VentricleLeft ventricle size is normal. Normal wall thickness. Normal wall motion. Normal systolic function with a visually estimated EF of 55 - 60%. Unable to assess diastolic function due to arrhythmia. Elevated left ventricular filling pressure.Right VentricleRight ventricle size is normal. Normal systolic function.Left AtriumLeft atrium size is normal.Right AtriumRight atrium size is normal.IVC/SVCIVC diameter is less than or equal to 21 mm and decreases greater than 50% during inspiration; therefore the estimated right atrial pressure is normal (~0-5 mmHg).Mitral ValveMitral valve structure is normal. Trace transvalvular regurgitation.Tricusp id ValveTricuspid valve structure is normal. Trace transvalvular regurgitation. Insufficient tricuspid regurgitation jet to estimate RVSP, but probably normal. RA pressure is 0-5 mmHg.Aortic ValveTricuspid.Pulmon ic ValveValve structure is normal.Ascending AortaNormal sized aorta.PericardiumThe pericardium is normal. No pericardial effusion.Study DetailsStudy quality was adequate. A complete echocardiogram was performed using 2D, color flow Doppler and spectral Doppler. The apical, parasternal, subcostal and suprasternal views were obtained. 3 mL of Optison ultrasound enhancing agent used. [facility] Procedure Notes Date/Time Note Provider Source 2024-12-20 09:16:48 Images from the original note were not included. Procedure: Atrial fibrillation ablation [facility] Supervisor: Berta Ramirez MD EBL: 30 ml (unless otherwise stated) Specimens: none Anesthesia: General anesthesia Complication: None Pre-Procedure Diagnosis: Symptomatic long standing persistent atrial fibrillation Summarized Procedure: 1-PVI for afib ablation Details: The risks and benefits of GA, electrophysiology study, trans-septal puncture, endocardial PFA+/- radiofrequency ablation, possible direct current cardioversion, atrial fibrillation ablation, and atrial flutter ablation were explained to the patient in detail. Risks including, but not limited to bleeding, infection, heart block, atrio-esophageal fistula, pulmonary vein stenosis, stroke, cardiac tamponade, pneumothorax, , and need for cardiac surgery were explained. The patient expressed verbal understanding and agreed to proceed with the procedure as outlined. Informed written consent was signed and placed in the chart prior to proceeding. After informed consent was obtained, the patient was brought to the Cardiac Electrophysiology Laboratory in a fasting state and was prepped and draped in the usual sterile fashion. Both groin areas were infiltrated with 0.5% lidocaine. Presenting rhythm was afib RVR. Prior to the procedure ICE was performed and demonstrated normal LVEF, normal size LA and no left atrial thrombus. (ICE exam was performed from RA, RVOT and LA. Using modified Seldinger technique, sheaths and catheters were inserted and advanced as follows. An 18,10,7 on right femoral vein. An Inquiry CS catheter was inserted via the 7 Fr sheath and placed with its tip in the distal coronary sinus. Next, an intracardiac echocardiogram probe was inserted into the 9 Fr sheath, and Faraconnect sheath inserted via 18 Fr sheath in the right femoral vein. Intracardiac echocardiography (ICE): An 8Fr ICE catheter was inserted through the right femoral vein sheath and under fluoroscopic direction was placed into the right atrium. ICE was used to assist with transseptal puncture . Furthermore it was left in place during the entire procedure for monitoring of possible development of pericardial effusion or tamponade which there was none. Pre TS puncture I did detailed ICE exam, initially I examine the area of the right atrium, tricuspid valve and right ventricle inflow. With gradual posterior rotation I examined the following Cardiac structures ; interatrial septum, left atrium, mitral valve annulus, mitral valve leaflet, MAXX, left superior PV, left inferior PV, posterior wall of the left atrium, right pulmonary veins. I re-centered the ICE catheter facing the RV inflow and with anterior flexion of the ICE catheter and septal rotation I gently advanced the ICE cathter into the right ventricle. With gradual septal-Posterior rotation of the ICE catheter I examined the left ventricular cavity, posterior medical papillary muscle, anterior lateral papillary muscle. With more clockwise rotation of the ICE catheter I was able to examine AV leaflet in cross sectional view along with RVOT, pulmonary valve and PA. From that view, I reexamined the MAXX lobes and left superior PV. At end of exam the ICE cathter was kept inside the RV for monitoring of possible development of pericardial effusion. Transseptal puncture: Faraconnect 13Fr sheath was advanced via 18 Fr sheath in right femoral vein. After placing and confirming the position of [place] sheath tip on the interatrial septum fossa ovalis area with ICE and fluorsoscopy guidance, the TS puncture was performed, guidewire was advanced into LA then PV with ICE guidance. Sheath and dilator were inserted into mid LA cavity under fluoroscopic direction. 07858 units of heparin was administered intravenously at time of obtaining TS puncture prior to advancing the sheath and dilator. ACT was measured every 10 minutes and additional doses of heparin were administered in order to maintain ACT between 350-400 seconds. The [place] dilator and guide wire were removed and sheath was flushed and maintained on continuous drip with heparinized saline. Left atrial mapping and ablation: A-PVI: A 3-D electroanatomic map of the left atrium was performed using the [employer] mapping system. Mapping was performed with PFA mapping catheter. Pulmonary veins were identified using fluoroscopy, ICE, and the mapping system. The patient had a total of 4 veins. A right superior, right inferior, left superior, and left inferior pulmonary vein. Next we delivered Farawave PFA therapy to isolate pulmonary veins with 8 applications per vein with 2 Kv (4-6 per position). PV isolation confirmed with re mapping the PVs using PFA catheter. Plan Limited TTE for effusion. Bedrest 5 hr. Start Eliquis, 5 bid, first dose in 5 hr Suture removal in 5 hr. Follow up with EP clinic in 2 weeks Start amiodarone 200 mg daily for 90 days. Patient voiced understanding her/his treatment plan. All her/his questions were answered during this visit. Advised to call the office with any further questions. Voice recognition software has been used to create portions of this document. An attempt to proofread has been made to minimize errors. Please do not hesitate to call with any questions. Berta Ramirez MD Cardiac Electrophysiology [facility] T [facility] [employer] Notes Date/Time Note Provider Source 2024-12-19 16:00:00 Images from the original note were not included. Venipuncture collection performed by clean technique on the right anticubitus. Total of 1 attempts were made. Slight pressure and a bandage/dressing were applied to the site(s). The patient experienced no complications. The following specimens were processed according to instructions and sent to [facility] laboratories per lab order on 12/19/2024: LT BLUE 1 SST 1 RED LAV 2 PPT DK GREEN (LiHep) DK GREEN (SodH) [place] DK BLUE (K2) DK BLUE (S) ACD Blood Culture NIPT/NTD [facility] 2024-12-19 14:26:17 Lab orders placed. [facility] 2024-12-19 06:53:44 Pt is scheduled to have procedure on 12/20/24. Asked for lab orders to be placed. Viviana Collins [facility] 2024-04-15 12:42:36 Called pt to schedule procedure. Pt agreed to come in on 07/19/24. Pt is scheduled for labs on 07/18/24. Pt is aware a nurse will call a week before with instructions and a azure developer a day before with an arrival time. Viviana Collins [facility] 2024-04-13 14:00:00 Addended by: BERTA RAMIREZ on: 04/13/2024 02:35 PM Modules accepted: Orders T [facility] 2024-03-25 09:01:30 Records received from Cherise Silver. Placed on Dr. Montero's desk for review. T [facility]
[2025-05-13] MEDS ORDERED: ONDANSETRON 4 MG/2 ML VIAL ONE (18:29)
[2025-05-13 18:30] LABS: Absolute Lymphocytes (CBC) 2.1 K/uL (0.7-4.9); Hematocrit 46.6 % (39.6-49.0); Hemoglobin 16.4 g/dL (13.6-17.9); MCH 31.2 pg (27.0-35.0); MCHC 35.2 g/dL (32.0-36.0); MCV 88.8 fL (80-100); MPV 7.7 fL (7.6-11.3); Nucleated RBC Absolute Count 0.0 (0-0); Nucleated Red Blood Cells % 0.1 % (0-0); RBC Red Blood Cell Count 5.25 M/uL (4.33-5.43); White Blood Count 10.60 thou/uL (4.3-10.9)
[2025-05-13 18:37] LABS: PT Prothrombin Time 13.3 SECONDS (10-13.0); Protime INR 1.18
[2025-05-13 18:51] LABS: ALT/SGPT 66 U/L (16-61); AST/SGOT 26 U/L (15-37); Albumin 4.0 g/dL (3.4-5.0); Albumin/Globulin Ratio 1.1 (1.1-1.8); Alkaline Phosphatase 73 U/L (45-117); Anion Gap 6.0 mEq/L (5.0-15.0); BUN Blood Urea Nitrogen 14 mg/dL (7-18); Globulin 3.8 g/dL (2.3-3.5); Glucose Level 104 mg/dL (74-106); Magnesium 2.3 mg/dL (1.6-2.4); NT PRO-BNP 32 pg/mL (<125); Potassium 4.0 mEq/L (3.5-5.1); Troponin High Sensitivity 37.8 pg/mL (<58.9)
[2025-05-13 18:52] LABS: Bilirubin Indirect, Calculated 0.3 mg/dL (0.2-0.8)
--- NOTE | 2025-05-13 18:54 | ER ---
Nurse's Notes [facility] Name: Timoteo Carney Age: 39 yrs Sex: Male : 1985 Arrival Date: 05/13/2025 Time: 18:05 Bed 15 Private MD: Diagnosis: Near syncope, nausea Presentation: 05/13 18:15 Chief complaint: Patient states: nausea, dizziness and an episode of near syncope last me1 night, symptoms persisted today with some relief this evening. Hx of afib with ablation. Denies CP, SOB. Coronavirus screen: Vaccine status: Patient reports being unvaccinated. Ebola Screen: No symptoms or risks identified at this time. Initial Sepsis Screen: Does the patient meet any 2 criteria? HR > 90 bpm. Does the patient have a suspected source of infection? No. Patient's initial sepsis screen is negative. Risk Assessment: Do you want to hurt yourself or someone else? Patient reports no desire to harm self or others. Onset of symptoms was May 12, 2025. 18:15 Method Of Arrival: Ambulatory wy1 18:15 Acuity: ANNETTA 3 me1 Historical: - Allergies: 18:17 No Known Allergies; me1 - PMHx: 18:17 Hypertensive disorder; Atrial fibrillation; me1 - PSHx: 18:17 ablation (Unknown); me1 - Immunization history:: Adult Immunizations up to date. - Infectious Disease History:: Denies. - Social history:: Smoking status: Patient denies any tobacco usage or history of. Screenin:06 [facility] ED Fall Risk Assessment (Adult) History of falling in the last 3 months, db including since admission No falls in past 3 months (0 pts) Confusion or Disorientation No (0 pts) Intoxicated or Sedated No (0 pts) Impaired Gait No (0 pts) Mobility Assist Device Used No (0 pt) Altered Elimination No (0 pt) Score/Fall Risk Level 0 - 2 = Low Risk Oriented to surroundings, Maintained a safe environment. Abuse screen: Denies threats or abuse. Denies injuries from another. Nutritional screening: No deficits noted. Tuberculosis screening: No symptoms or risk factors identified. Assessment: 18:15 Reassessment: Patient appears in no apparent distress at this time. Patient and/or db family updated on plan of care and expected duration. Pain level reassessed. Patient is alert, oriented x 3, equal unlabored respirations, skin warm/dry/pink. GI: Reports nausea. 19:06 Reassessment: Patient appears in no apparent distress at this time. Patient and/or db family updated on plan of care and expected duration. Pain level reassessed. Patient is alert, oriented x 3, equal unlabored respirations, skin warm/dry/pink. General: Appears in no apparent distress. comfortable, Behavior is calm, cooperative. Pain: Denies pain. Neuro: Level of Consciousness is awake, alert, obeys commands, Oriented to person, place, time, situation. Respiratory: Airway is patent Respiratory effort is even, unlabored, Respiratory pattern is regular, symmetrical. GI: Vital Signs: 18:15 BP 137 / 97; Pulse 93; Resp 17; Temp 98.4; Pulse Ox 98% ; Weight 131.54 kg; Height 5 me1 ft. 9 in. ; Pain 0/10; 18:15 BP 156 / 88; Pulse 93; Resp 16; Pulse Ox 98% on R/A; db 19:00 BP 129 / 88; Pulse 82; Resp 16; Pulse Ox 97% on R/A; db 18:15 Body Mass Index 42.83 (131.54 kg, 175.26 cm) me1 18:15 Pain Scale: Adult wy1 ED Course: 18:07 Patient arrived in ED. cj3 18:09 Ralf Benitez MD is Attending Physician. sp3 18:14 Megan Flores, RN is Primary Nurse. db 18:16 Triage completed. me1 18:17 Arm band placed on Patient placed in an exam room. me1 18:25 Initial lab(s) drawn, by wy, sent to lab. EKG done. Inserted saline lock: 20 gauge in db left antecubital area, using aseptic technique. Blood collected. Flushed with 10 mL NS. 18:26 EKG done, by multimedia technician. reviewed by Ralf Benitez MD. ts3 19:06 Patient has correct armband on for positive identification. Bed in low position. Call db light in reach. Side rails up X 1. Provided Education on: FOLLOWUP. Pulse ox on. NIBP on. Pillow given. 19:06 No provider procedures requiring assistance completed. IV discontinued, intact, db bleeding controlled, No redness/swelling at site. Administered Medications: 18:28 Drug: Ondansetron IVP 4 mg IVP once; over 2 minutes Route: IVP; Site: left antecubital; db 19:07 Follow up: Response: No adverse reaction db Medication: 19:06 VIS not applicable for this client. db Outcome: 18:54 Discharge ordered by . sp3 19:06 Discharged to home ambulatory, with family, db 19:06 Condition: stable 19:06 Discharge instructions given to patient, family, Instructed on discharge instructions, follow up and referral plans. 19:08 Patient left the ED. db Signatures: Ralf Benitez MD MD sp3 Megan Flores, RN RN db Carla Quintero RN RN me1 Corrie Blue 3 Jennifer Kruse 3
--- NOTE | 2025-05-13 18:54 | EDPHYS ---
Physician Documentation [facility] Name: Timoteo Carney Age: 39 yrs Sex: Male : 1985 Arrival Date: 05/13/2025 Time: 18:05 Bed 15 Private MD: ED Physician Ralf Benitez HPI: 05/13 18:19 This 39 yrs old Male presents to ER via Ambulatory with complaints of Dizziness, sp3 Nausea, Near Syncope. 18:19 39-year-old male with history of hypertension, prior atrial fibrillation now status sp3 post ablation, presents to the ED with a 24-hour history of episodes of near syncope and nausea. He denies any other symptoms including full syncope, chest pain, shortness of breath, back pain, jaw pain, left arm pain, other anginal equivalents, nausea, vomiting, diarrhea, fever, known sick contact, prolonged immobilization, or any other signs or symptoms on ROS at this time.. Historical: - Allergies: 18:17 No Known Allergies; me1 - PMHx: 18:17 Hypertensive disorder; Atrial fibrillation; me1 - PSHx: 18:17 ablation (Unknown); me1 - Immunization history:: Adult Immunizations up to date. - Infectious Disease History:: Denies. - Social history:: Smoking status: Patient denies any tobacco usage or history of. ROS: 18:21 Constitutional: Negative for fever, chills, and weight loss, Eyes: Negative for injury, sp3 pain, redness, and discharge, ENT: Negative for injury, pain, and discharge, Neck: Negative for injury, pain, and swelling, Respiratory: Negative for shortness of breath, cough, wheezing, and pleuritic chest pain, Abdomen/GI: Negative for abdominal pain, nausea, vomiting, diarrhea, and constipation, Back: Negative for injury and pain, MS/Extremity: Negative for injury and deformity, Skin: Negative for injury, rash, and discoloration, Psych: Negative for depression, anxiety, suicide ideation, homicidal ideation, and hallucinations, Allergy/Immunology: Negative for hives, rash, and allergies, Endocrine: Negative for neck swelling, polydipsia, polyuria, polyphagia, and marked weight changes, Hematologic/Lymphatic: Negative for swollen nodes, abnormal bleeding, and unusual bruising, 18:21 All other systems are negative, Exam: 18:21 Constitutional: This is a well developed, well nourished patient who is awake, alert, sp3 and in no acute distress. Head/Face: Normocephalic, atraumatic. Eyes: Pupils equal round and reactive to light, extra-ocular motions intact. Lids and lashes normal. Conjunctiva and sclera are non-icteric and not injected. Cornea within normal limits. Periorbital areas with no swelling, redness, or edema. ENT: Nares patent. No nasal discharge, no septal abnormalities noted. External auditory canals are clear. Oropharynx with no redness, swelling, or masses, exudates, or evidence of obstruction, uvula midline. Mucous membranes moist. Neck: Trachea midline, no thyromegaly or masses palpated, and no cervical lymphadenopathy. Supple, full range of motion without nuchal rigidity, or vertebral point tenderness. No Meningismus. Chest/axilla: Normal chest wall appearance and motion. Nontender with no deformity. No lesions are appreciated. Cardiovascular: Regular rate and rhythm with a normal S1 and S2. No gallops, murmurs, or rubs. Normal PMI, no JVD. No pulse deficits. Respiratory: Lungs have equal breath sounds bilaterally, clear to auscultation and percussion. No rales, rhonchi or wheezes noted. No increased work of breathing, no retractions or nasal flaring. Abdomen/GI: Soft, non-tender, with normal bowel sounds. No distension or tympany. No guarding or rebound. No evidence of tenderness throughout. Back: No spinal tenderness. No costovertebral tenderness. Full range of motion. Skin: Warm, dry with normal turgor. Normal color with no rashes, no lesions, and no evidence of cellulitis. MS/ Extremity: Pulses equal, no cyanosis. Neurovascular intact. Full, normal range of motion. Neuro: Awake and alert, GCS 15, oriented to person, place, time, and situation. Cranial nerves II-XII grossly intact. Motor strength 5/5 in all extremities. Sensory grossly intact. Cerebellar exam normal. Normal gait. Psych: Awake, alert, with orientation to person, place and time. Behavior, mood, and affect are within normal limits. 18:21 ECG was reviewed by the Attending Physician. EKG demonstrates normal sinus rhythm at 91 bpm with normal intervals, normal QRS, normal axis and nonspecific diffuse ST/T changes without evidence of acute ischemia. Vital Signs: 18:15 BP 137 / 97; Pulse 93; Resp 17; Temp 98.4; Pulse Ox 98% ; Weight 131.54 kg; Height 5 me1 ft. 9 in. ; Pain 0/10; 18:15 BP 156 / 88; Pulse 93; Resp 16; Pulse Ox 98% on R/A; db 19:00 BP 129 / 88; Pulse 82; Resp 16; Pulse Ox 97% on R/A; db 18:15 Body Mass Index 42.83 (131.54 kg, 175.26 cm) me1 18:15 Pain Scale: Adult me1 MDM: 18:09 Medical Screening Exam initiated sp3 18:22 Data reviewed: vital signs, nurses notes, old medical records, lab test result(s), EKG. sp3 ED course: 39-year-old male with near syncope and nausea now resolved. Patient wants to make sure he is not in atrial fibrillation or other cardiac issue. Differential diagnosis includes nonspecific near syncope, electrolyte disturbance, viral illness, and to a lesser degree arrhythmia, ACS or other process. Will obtain EKG, routine labs including troponin. Vital signs are normal. If workup is negative we will safely discharge patient home. He does not want to stay for any other rule out or other process.. 05/13 18:14 Order name: Basic Metabolic Panel; Complete Time: 18:53 sp3 05/13 18:14 Order name: CBC with Diff; Complete Time: 18:49 sp3 05/13 18:14 Order name: LFT's; Complete Time: 18:53 sp3 05/13 18:14 Order name: Magnesium; Complete Time: 18:53 sp3 05/13 18:14 Order name: NT PRO-BNP; Complete Time: 18:53 sp3 05/13 18:14 Order name: PT-INR; Complete Time: 18:49 sp3 05/13 18:14 Order name: Troponin HS; Complete Time: 18:53 sp3 05/13 18:14 Order name: EKG - Nurse/Tech; Complete Time: 18:26 sp3 05/13 18:14 Order name: IV Saline Lock; Complete Time: 18:26 sp3 05/13 18:14 Order name: Labs collected and sent; Complete Time: 18:26 sp3 Administered Medications: 18:28 Drug: Ondansetron IVP 4 mg IVP once; over 2 minutes Route: IVP; Site: left antecubital; db 19:07 Follow up: Response: No adverse reaction db Disposition Summary: 05/13/25 18:54 Discharge Ordered Notes: Location: Home sp3 Condition: Stable sp3 Diagnosis - Near syncope, nausea sp3 Followup: sp3 - With: Private Physician - When: Upon discharge from the Emergency Department - Reason: Continuance of care Discharge Instructions: - Discharge Summary Sheet sp3 - Near-Syncope sp3 Forms: - Medication Reconciliation Form sp3 - Antibiotic Education sp3 - Prescription Opioid Use sp3 - Patient Portal Instructions sp3 - Leadership Thank You Letter sp3 Signatures: Dispatcher [employer] Ralf Quick MD MD sp3 Megan Flores, RN RN db Carla Quintero RN RN me1
[2025-05-13 19:13] VITALS: TEMP 98.4
[2025-05-13 19:14] VITALS: BP 129/88; O2SAT 97
== END 2025-05-13 19:08 | disposition home or self-care (01) ==
LOC: ER 18:05
DX: R55 Syncope and collapse (principal); R11.0 Nausea; I10 Essential (primary) hypertension; I48.91 Unspecified atrial fibrillation
CPT/HCPCS: 93005; 85025; 80048; 36415; 83735; 85610; 80076; 84484; 83880; 96374; 99284; J2405